=== PATIENT | female | born 1955 | race Caucasian/White ===

== ENCOUNTER 2016-11-27 05:35 | Day surgery (SDC) | END 2016-11-27 10:27 | disposition home or self-care (01) | DX: D17.1 Benign lipomatous neoplasm of skin and subcutaneous tissue of trunk (principal); E66.01 Morbid (severe) obesity due to excess calories; Z68.38 Body mass index [BMI] 38.0-38.9, adult | CPT/HCPCS: 11406; 88307; J0330; J0690; J1100; J1170; J2250; J2405; J2765; J3010; Z7512; Z7610 ==